=== PATIENT | female | born 1940 | race Hispanic/Latino ===

== ENCOUNTER 2020-02-21 08:50 | Inpatient (IN) | payer MEDICARE ==
[2020-02-21 11:00] LABS: Basophils % (Auto) 0.2 % (0.0-1.8); Eosinophils % (Auto) 0.8 % (0.0-4.3); Hematocrit 35.5 % (30.3-42.9); Hemoglobin 11.8 gm/dl (10.1-14.3); Lymphocytes # (Auto) 0.9 K/mm3 (1.2-5.4); Lymphocytes % (Auto) 14.8 % (13.4-35.0); Mean Corpuscular HGB Conc 33 % (30-34); Mean Corpuscular Volume 87 fl (79-97); Monocytes # (Auto) 0.5 K/mm3 (0.0-0.8); Monocytes % (Auto) 8.9 % (0.0-7.3); Platelet Count 230 K/mm3 (140-440); Red Blood Count 4.08 M/mm3 (3.65-5.03)
[2020-02-21] MEDS ORDERED: cefTRIAXone/NS 1 GM/50 ML 1 GM/50 ML BAG IV ONE (11:03)
[2020-02-21] MEDS ORDERED: dexAMETHasone 20 MG/5 ML VIAL IV ONE (11:03)
--- NOTE | 2020-02-21 11:03 | Emergency Department Report ---
HPI - General Chief Complaint: Dyspnea/Respdistress Time Seen by Provider: 02/21/20 10:04 - HPI HPI: This is a 79-year-old female presents to the emergency department with complaint of a 4 to 5-day history of shortness of breath, coughing, body aches, diarrhea, subjective fever. The patient went on Wednesday for drive-through COVID- 19 testing and found out last night that she was positive. She says that the shortness of breath worsened overnight. Patient came to triage and was 80% oxygen saturation on room air. She was placed on 4 L oxygen via nasal cannula and the oxygen increased to the mid to high 90s. She has a past medical history that includes hypertension and hyperlipidemia. She denies being a tobacco smoker or any illicit drugs. No recent travel or sick contacts at home. ED Past Medical Hx - Past Medical History Hx Hypertension: Yes Hx Arthritis: Yes Additional medical history: HIGH CHOLESTROL - Surgical History Hx Cholecystectomy: Yes Additional Surgical History: BILATERAL KNEE PREPLACEMENT/ HIP REPLACEMENT /HYSTO ED Review of Systems ROS: Stated complaint: TESTED POSITIVE FOR COVID Other details as noted in HPI Comment: All other systems reviewed and negative Constitutional: chills, fever Eyes: denies: eye pain, vision change ENT: denies: ear pain, throat pain Respiratory: cough, shortness of breath Cardiovascular: denies: chest pain, palpitations Gastrointestinal: nausea, diarrhea. denies: abdominal pain Genitourinary: denies: dysuria, discharge Musculoskeletal: myalgia. denies: joint swelling Skin: denies: rash, lesions Neurological: denies: weakness, numbness Physical Exam - Physical Exam Vital Signs: Vital Signs 02/21/20 09:23 Temperature 99.1 F Pulse Rate 77 Respiratory 24 Rate Blood Pressure 147/49 [Right] O2 Sat by Pulse 80 L Oximetry Physical Exam: GENERAL: The patient is well-developed well-nourished. HENT: Normocephalic. Atraumatic. Patient has moist mucous membranes. EYES: Extraocular motions are intact. Pupils equal reactive to light bilaterally. NECK: Supple. Trachea is midline. CHEST/LUNGS: A productive sounding cough heard during examination. There is fransisca e tachypnea. HEART/CARDIOVASCULAR: Regular. There is no tachycardia. There is no murmur. ABDOMEN: Abdomen is soft, nontender. Patient has normal bowel sounds. Obese habitus. SKIN: Skin is warm and dry. NEURO: The patient is awake, alert, and oriented. The patient is cooperative. The patient has no focal neurologic deficits. Normal speech. MUSCULOSKELETAL: There is no tenderness or deformity. There is no limitation range of motion. T ED Course Vital Signs 02/21/20 09:23 Temperature 99.1 F Pulse Rate 77 Respiratory 24 Rate Blood Pressure 147/49 [Right] O2 Sat by Pulse 80 L Oximetry - Reevaluation(s) Reevaluation #1: 02/21/20 18:15 Lab Results 02/21/20 02/21/20 02/21/20 Range/Units 10:43 10:43 10:43 WBC 6.0 (4.5-11.0) K/mm3 RBC 4.08 (3.65-5.03) M/mm3 Hgb 11.8 (10.1-14.3) gm/dl Hct 35.5 (30.3-42.9) % MCV 87 (79-97) fl MCH 29 (28-32) pg MCHC 33 (30-34) % RDW 14.0 (13.2-15.2) % Plt Count 230 (140-440) K/mm3 Lymph % (Auto) 14.8 (13.4-35.0) % [place] % (Auto) 8.9 H (0.0-7.3) % Eos % (Auto) 0.8 (0.0-4.3) % Baso % (Auto) 0.2 (0.0-1.8) % Lymph # (Auto) 0.9 L (1.2-5.4) K/mm3 [place] # (Auto) 0.5 (0.0-0.8) K/mm3 Eos # (Auto) 0.0 (0.0-0.4) K/mm3 Baso # (Auto) 0.0 (0.0-0.1) K/mm3 Seg Neutrophils % 75.3 H (40.0-70.0) % Seg Neutrophils # 4.5 (1.8-7.7) K/mm3 PT 13.7 (12.2-14.9) Sec. INR 1.04 (0.87-1.13) D-Dimer 670.51 H (0-234) ng/mlDDU Sodium 142 (137-145) mmol/L Potassium 3.4 L (3.6-5.0) mmol/L Chloride 99.7 (98-107) mmol/L Carbon Dioxide 34 H (22-30) mmol/L Anion Gap 12 mmol/L BUN 15 (7-17) mg/dL Creatinine 0.6 (0.6-1.2) mg/dL Estimated GFR > 60 ml/min BUN/Creatinine Ratio 25 % Glucose 108 H (65-100) mg/dL Calcium 8.2 L (8.4-10.2) mg/dL Ferritin (10.0-200.0) ng/mL Total Bilirubin 0.30 (0.1-1.2) mg/dL AST 29 (5-40) units/L ALT 24 (7-56) units/L Alkaline Phosphatase 84 (35-129) units/L Lactate Dehydrogenase 431 H (91-180) units/L Troponin T < 0.010 (0.00-0.029) ng/mL C-Reactive Protein 9.60 H (0.00-1.30) mg/dL NT-Pro-B Natriuret Pep (0-900) pg/mL Total Protein 6.7 (6.3-8.2) g/dL Albumin 3.3 L (3.9-5) g/dL Albumin/Globulin Ratio 1.0 % Procalcitonin (<0.15) ng/mL 02/21/20 02/21/20 02/21/20 Range/Units 10:43 10:43 10:43 WBC (4.5-11.0) K/mm3 RBC (3.65-5.03) M/mm3 Hgb (10.1-14.3) gm/dl Hct (30.3-42.9) % MCV (79-97) fl MCH (28-32) pg MCHC (30-34) % RDW (13.2-15.2) % Plt Count (140-440) K/mm3 Lymph % (Auto) (13.4-35.0) % [place] % (Auto) (0.0-7.3) % Eos % (Auto) (0.0-4.3) % Baso % (Auto) (0.0-1.8) % Lymph # (Auto) (1.2-5.4) K/mm3 [place] # (Auto) (0.0-0.8) K/mm3 Eos # (Auto) (0.0-0.4) K/mm3 Baso # (Auto) (0.0-0.1) K/mm3 Seg Neutrophils % (40.0-70.0) % Seg Neutrophils # (1.8-7.7) K/mm3 PT (12.2-14.9) Sec. INR (0.87-1.13) D-Dimer (0-234) ng/mlDDU Sodium (137-145) mmol/L Potassium (3.6-5.0) mmol/L Chloride (98-107) mmol/L Carbon Dioxide (22-30) mmol/L Anion Gap mmol/L BUN (7-17) mg/dL Creatinine (0.6-1.2) mg/dL Estimated GFR ml/min BUN/Creatinine Ratio % Glucose (65-100) mg/dL Calcium (8.4-10.2) mg/dL Ferritin 674.3 H (10.0-200.0) ng/mL Total Bilirubin (0.1-1.2) mg/dL AST (5-40) units/L ALT (7-56) units/L Alkaline Phosphatase (35-129) units/L Lactate Dehydrogenase (91-180) units/L Troponin T (0.00-0.029) ng/mL C-Reactive Protein (0.00-1.30) mg/dL NT-Pro-B Natriuret Pep 452.6 (0-900) pg/mL Total Protein (6.3-8.2) g/dL Albumin (3.9-5) g/dL Albumin/Globulin Ratio % Procalcitonin < 0.05 (<0.15) ng/mL ED Medical Decision Making - Lab Data Result diagrams: 02/21/20 10:43 02/21/20 10:43 - EKG Data -: EKG Interpreted by Me EKG shows normal: sinus rhythm, axis (Left axis deviation), intervals, QRS complexes (LVH), ST-T waves Rate: normal - EKG Data When compared to previous EKG there are: previous EKG unavailable Interpretation: LVH - Radiology Data Radiology results: image reviewed interpreted by me: Chest x-ray shows bilateral patchy infiltrates concerning for pneumonia. - Medical Decision Making This patient presents to the emergency department with complaint of increased shortness of breath, coughing, body aches, nausea, diarrhea and a recent posi tive Covid test. The patient was 80% room air oxygen saturation through triage and was placed on 4 L oxygen via nasal cannula with some improvement. Chest x- ray shows bilateral pneumonia. Patient's labs shows multiple elevated inflammatory markers consistent with COVID-19 infection, such as D-dimer, CRP, LDH and ferritin levels. The patient was given IV Decadron, Rocephin, azithromycin and Zofran. The patient will be admitted to the hospital for further evaluation and treatment was accepted for admission by the hospitalist service. Critical Care Time: Yes Critical care time in (mins) excluding proc time.: 35 Critical care attestation.: If time is entered above; I have spent that time in minutes in the direct care of this critically ill patient, excluding procedure time. Critical care time was spent on this patient in doing her initial evaluation, multiple reevaluations, ordering and interpretation of labs and imaging, IV antibiotics, IV steroids, IV antiemetics, discussion with the hospitalist service and multiple discussions with the patient. Critical Care Time: 35 minutes ED Disposition Clinical Impression: Hypoxia, COVID-19 Pneumonia Qualifiers: Pneumonia type: due to unspecified organism Laterality: bilateral Lung location: unspecified part of lung Qualified Code(s): J18.9 - Pneumonia, unspecified organism Disposition: OP ADMIT IP TO THIS HOSP Is pt being admited?: Yes Condition: Serious Time of Disposition: 11:40
[2020-02-21] MEDS ORDERED: ONDANSETRON 4 MG/2 ML INJ IV ONE (11:04)
[2020-02-21 11:11] LABS: INR 1.04 (0.87-1.13)
--- NOTE | 2020-02-21 11:17 | XRay Report ---
CHEST 1 VIEW 02/21/2020 10:12 AM INDICATION / CLINICAL INFORMATION: SOB. COMPARISON: None available. FINDINGS: SUPPORT DEVICES: None. HEART / MEDIASTINUM: There are mild atherosclerotic calcifications in the aortic arch. The heart size appears normal. LUNGS / PLEURA: There are bilateral patchy interstitial and airspace opacities in the mid lower lung zones. No pneumothorax. ADDITIONAL FINDINGS: No significant additional findings. IMPRESSION: 1. There are patchy interstitial and airspace opacities in the mid lower lung zones which could repre sent pulmonary edema. Possibility that this could represent an atypical infection is included in the differential diagnosis. Signer Name: Don Hernández MD Signed: 02/21/2020 11:16 AM Workstation Name: [id number]
[2020-02-21 11:28] LABS: Alanine Aminotransferase 24 units/L (7-56); Albumin 3.3 g/dL (3.9-5); Blood Urea Nitrogen 15 mg/dL (7-17); Calcium 8.2 mg/dL (8.4-10.2); Hemolysis Index 6
[2020-02-21 11:29] LABS: BUN/Creatinine Ratio 25
[2020-02-21] MEDS ORDERED: AZITHROMYCIN 500 MG in SODIUM CHLORIDE 0.9% 250ML 250 ML IV ONE (11:30)
[2020-02-21] MEDS ORDERED: ACETAMINOPHEN 325 MG TAB PO PRN (13:04)
[2020-02-21] MEDS ORDERED: ONDANSETRON 4 MG/2 ML INJ IV PRN (13:04)
[2020-02-21] MEDS ORDERED: oxyCODONE /ACETAMINOPHEN 5-325MG TAB PO PRN (13:06)
--- NOTE | 2020-02-21 13:12 | History and Physical Report ---
<CARMELINA RATLIFF - Last Filed: 02/21/20 16:54> History of Present Illness History of present illness: This is a 89-year-old female with hypertension, arthritis and hypercholesterolemia presented to the emergency department on 02/20 with 4 to 5- day history of shortness of breath, coughing, body aches, diarrhea, loss of sense of taste and smell and subjective fever. Patient states that she tested positive for COVID-19 on Wednesday and her shortness of breath worsened overnight therefore she presents to the hospital. Patient was hypoxic on presentation with his SPO2 of 80% on room air consistent with acute hypoxic respiratory failure patient was placed on supplemental oxygenation on 4 L via nasal cannula with improvement. Patient denies any chest pain, hemoptysis, recent weight loss, night sweats, fatigue, nausea, vomiting or recent weight loss. Patient states that she had recent contact with her sister who was sick but tested negative for COVID-19. Work-up in the emergency department included a chest x-ray that showed patchy interstitial and airspace opacities in the mid lower lung zones, hypoxic kalemia 3.4, elevated CO2 of 34, elevated COVID-19 markers with a procalcitonin of less than 0.05. Patient elevated D-dimer 650 or better therefore bilateral lower extremity Doppler ultrasounds were obtained to rule out a DVT. Infectious disease was consulted and patient will be admitted to the hospital service as a COVID-19 PUI. Advance care planning conducted in the emergency department. No prior visits to review. Past History Past Medical History: arthritis, hypertension, hyperlipidemia Past Surgical History: cholecystectomy, hysterectomy, total hip replacement, total knee replacement Social history: , lives with family, full code. denies: smoking, alcohol abuse, prescription drug abuse, IV drug use Medications and Allergies Allergies Allergy/AdvReac Type Severity Reaction Status Date / Time No Known Allergies Allergy Verified 02/21/20 09:19 Active Meds: Active Medications Acetaminophen (Tylenol) 650 mg PO Q4H PRN PRN Reason: Pain MILD(1-3)/Fever >100.5/CASTELLON Docusate Sodium (Colace) 100 mg PO BID [place] Ondansetron HCl (Zofran) 4 mg IV Q6H PRN PRN Reason: Nausea And Vomiting Oxycodone/Acetaminophen (Percocet 5/325) 1 tab PO Q6H PRN PRN Reason: Pain, Moderate (4-6) Senna (Senokot) 8.6 mg PO Q12HR [place] Sodium Chloride (Sodium Chloride Flush Syringe 10 Ml) 10 ml IV BID [place] Sodium Chloride (Sodium Chloride Flush Syringe 10 Ml) 10 ml IV PRN PRN PRN Reason: LINE FLUSH Review of Systems Constitutional: fever, chills, fatigue, malaise, lethargy, no weight loss, no weight gain, no sweats, no night sweats, no anorexia, no weakness Ears, nose, mouth and throat: no ear pain, no ear discharge, no tinnitis, no decreased hearing, no nose pain, no nasal congestion, no nasal discharge, no epistaxis, no bleeding gums, no dental pain, no mouth pain, no headache Cardiovascular: shortness of breath, dyspnea on exertion, high blood pressure, no chest pain, no orthopnea, no palpitations, no rapid/irregular heart beat, no edema, no syncope, no lightheadedness, no leg edema Respiratory: cough, cough with sputum, shortness of breath, pain on inspiration, no excessive sputum, no hemoptysis, no congestion Gastrointestinal: nausea, vomiting, diarrhea, no abdominal pain, no constipation, no change in bowel habits, no hematemesis, no melena, no hematochezia, no loss of appetite Genitourinary Female: dyspareunia, no dysuria, no urinary frequency, no urgency, no stress incontinence, no hematuria, no nocturia Rectal: no pain, no incontinence, no bleeding, no hemorrhoids Musculoskeletal: no neck stiffness, no neck pain, no shooting arm pain, no arm numbness/tingling, no low back pain, no shooting leg pain, no leg numbness/tingling, no redness of joints Integumentary: no rash, no pruritis, no redness, no sores, no wounds Neurological: changes in smell/taste, no head injury, no transient paralysis, no paralysis, no weakness, no parathesias, no numbness, no tingling, no seizures, no syncope, no headaches, no double vision, no loss of vision Psychiatric: no anxiety, no memory loss, no change in sleep habits, no sleep disturbances, no insomnia, no suicidal ideation, no depression Endocrine: no heat intolerance, no polydipsia, no polyuria, no nocturia, no weight change, no high blood sugars Hematologic/Lymphatic: no easy bruising, no easy bleeding Allergic/Immunologic: no urticaria, no allergic rhinitis Exam - Constitutional Vitals: Temp Pulse Resp BP Pulse Ox 99.1 F 77 24 147/49 80 L 02/21/20 09:23 02/21/20 09:23 02/21/20 09:23 02/21/20 09:23 02/21/20 09:23 General appearance: Present: no acute distress - EENT Eyes: Present: PERRL, EOM intact ENT: hearing intact, clear oral mucosa - Neck Neck: Present: supple - Respiratory Respiratory effort: normal Respiratory: bilateral: diminished - Cardiovascular Rhythm: regular Heart Sounds: Present: S1 & S2. Absent: systolic murmur, diastolic murmur - Extremities Extremities: no ischemia, pulses intact, pulses symmetrical, No edema, normal temperature, normal color, Full ROM Peripheral Pulses: within normal limits - Abdominal General gastrointestinal: Present: soft, non-tender, non-distended, normal bowel sounds - Integumentary Integumentary: Present: clear, warm, dry - Musculoskeletal Musculoskeletal: strength equal bilaterally - Psychiatric Psychiatric: appropriate mood/affect, cooperative - Neurologic Neurologic: CNII-XII intact, no focal deficits, moves all extremities - Allied Health Allied health notes reviewed: nursing HEART Score - HEART Score History: Slightly suspicious EKG: Normal Age: > 65 Risk factors: 1-2 risk factors Troponin: Troponin T < 0.010 ng/mL (0.00-0.029) 02/21/20 10:43 Troponin: < normal limit HEART Score: 3 Results - Labs CBC & Chem 7: 02/21/20 10:43 02/21/20 10:43 Labs: Laboratory Last Values WBC 6.0 K/mm3 (4.5-11.0) 02/21/20 10:43 RBC 4.08 M/mm3 (3.65-5.03) 02/21/20 10:43 Hgb 11.8 gm/dl (10.1-14.3) 02/21/20 10:43 Hct 35.5 % (30.3-42.9) 02/21/20 10:43 MCV 87 fl (79-97) 02/21/20 10:43 MCH 29 pg (28-32) 02/21/20 10:43 MCHC 33 % (30-34) 02/21/20 10:43 RDW 14.0 % (13.2-15.2) 02/21/20 10:43 Plt Count 230 K/mm3 (140-440) 02/21/20 10:43 Lymph % (Auto) 14.8 % (13.4-35.0) 02/21/20 10:43 [place] % (Auto) 8.9 % (0.0-7.3) H 02/21/20 10:43 Eos % (Auto) 0.8 % (0.0-4.3) 02/21/20 10:43 Baso % (Auto) 0.2 % (0.0-1.8) 02/21/20 10:43 Lymph # (Auto) 0.9 K/mm3 (1.2-5.4) L 02/21/20 10:43 [place] # (Auto) 0.5 K/mm3 (0.0-0.8) 02/21/20 10:43 Eos # (Auto) 0.0 K/mm3 (0.0-0.4) 02/21/20 10:43 Baso # (Auto) 0.0 K/mm3 (0.0-0.1) 02/21/20 10:43 Seg Neutrophils % 75.3 % (40.0-70.0) H 02/21/20 10:43 Seg Neutrophils # 4.5 K/mm3 (1.8-7.7) 02/21/20 10:43 PT 13.7 Sec. (12.2-14.9) 02/21/20 10:43 INR 1.04 (0.87-1.13) 02/21/20 10:43 D-Dimer 670.51 ng/mlDDU (0-234) H 02/21/20 10:43 Sodium 142 mmol/L (137-145) 02/21/20 10:43 Potassium 3.4 mmol/L (3.6-5.0) L 02/21/20 10:43 Chloride 99.7 mmol/L (98-107) 02/21/20 10:43 Carbon Dioxide 34 mmol/L (22-30) H 02/21/20 10:43 Anion Gap 12 mmol/L 02/21/20 10:43 BUN 15 mg/dL (7-17) 02/21/20 10:43 Creatinine 0.6 mg/dL (0.6-1.2) 02/21/20 10:43 Estimated GFR > 60 ml/min 02/21/20 10:43 BUN/Creatinine Ratio 25 % 02/21/20 10:43 Glucose 108 mg/dL (65-100) H 02/21/20 10:43 Calcium 8.2 mg/dL (8.4-10.2) L 02/21/20 10:43 Ferritin 674.3 ng/mL (10.0-200.0) H 02/21/20 10:43 Total Bilirubin 0.30 mg/dL (0.1-1.2) 02/21/20 10:43 AST 29 units/L (5-40) 02/21/20 10:43 ALT 24 units/L (7-56) 02/21/20 10:43 Alkaline Phosphatase 84 units/L (35-129) 02/21/20 10:43 Lactate Dehydrogenase 431 units/L (91-180) H 02/21/20 10:43 Troponin T < 0.010 ng/mL (0.00-0.029) 02/21/20 10:43 C-Reactive Protein 9.60 mg/dL (0.00-1.30) H 02/21/20 10:43 NT-Pro-B Natriuret Pep 452.6 pg/mL (0-900) 02/21/20 10:43 Total Protein 6.7 g/dL (6.3-8.2) 02/21/20 10:43 Albumin 3.3 g/dL (3.9-5) L 02/21/20 10:43 Albumin/Globulin Ratio 1.0 % 02/21/20 10:43 Procalcitonin < 0.05 ng/mL (<0.15) 02/21/20 10:43 - Diagnostic Impressions Diagnostic Impressions: 02/20 CXR shows patchy interstitial and airspace opacities in the mid to lower lung zones which could represent pulmonary edema or atypical infection Assessment and Plan - Patient Problems (1) Suspected 2019 novel coronavirus infection Current Visit: Yes Status: Acute Plan to address problem: Presented with a 4 to 5-day history of shortness of breath, coughing, body aches, diarrhea, loss of sense of taste and smell and subjective fevers Patient was COVID-19 PCR positive on Wednesday (02/18) at outside facility Infectious disease consulted 02/20 COVID-19 PCR pending S/p azithromycin and Rocephin in the emergency department Azithromycin and Rocephin were started however they were stopped given normal procalcitonin Trend Covid inflammatory markers Contact/droplet isolation OOB 3 times daily 02/20 dexamethasone p.o. 6 mg daily for 10 days 02/20 ID initiated remdesivir 02/20 Covid antibody pending Pulmonary hygiene Supplemental oxygenation as needed Anticoagulation per COVID-19 protocol (2) Acute respiratory failure Current Visit: Yes Status: Acute Plan to address problem: Patient was hypoxemic on presentation to the emergency department to SPO2 80% on room air Patient supplemental oxygenation Pulmonary hygiene Wean oxygen as tolerated Steroid therapy (3) Elevated d-dimer Current Visit: Yes Status: Acute Plan to address problem: Presented with D-dimer 670.01 02/20 bilateral lower extremity Doppler ultrasoundSVT Trend D-dimer (4) Hypokalemia Current Visit: Yes Status: Acute Plan to address problem: Presented with a potassium of 3.4 Repleted Trend BMP Replete as needed (5) HTN (hypertension) Current Visit: Yes Status: Chronic Plan to address problem: Resume home antihypertensive regimen when obtained Blood pressure monitor per protocol As needed hydralazine for systolic blood pressure greater than 160 (6) HLD (hyperlipidemia) Current Visit: Yes Status: Chronic Plan to address problem: Resume home statin therapy once obtained (7) Morbid obesity with BMI of 40.0-44.9, adult Current Visit: Yes Status: Chronic Plan to address problem: Patient has a BMI of 43.8 Increase physical activity and reduce caloric intake Possibly consider bariatric surgery outpatient (8) DVT prophylaxis Current Visit: Yes Status: Acute Plan to address problem: SCDs bilateral extremities while in bed Lovenox subcu (9) Full code status Current Visit: Yes Status: Acute <GLENN COWART - Last Filed: 02/21/20 18:06> History of Present Illness Date of admission: 02/21/20 11:40 Medications and Allergies Active Meds: Active Medications Acetaminophen (Tylenol) 650 mg PO Q4H PRN PRN Reason: Pain MILD(1-3)/Fever >100.5/[place] Dexamethasone (Decadron) 6 mg PO DAILY [facility] Stop: 03/02/20 10:01 Docusate Sodium (Colace) 100 mg PO BID [facility] Enoxaparin Sodium (Enoxaparin) 40 mg SUB-Q QDAY@2200 [place]; Protocol Hydralazine HCl (Apresoline) 10 mg IV Q4HR PRN PRN Reason: Hypertension REMDESIVIR 100 mg/ Sodium (Chloride) 250 mls @ 500 mls/hr IV Q24HR@2100 [place] Stop: 02/25/20 21:29 Ondansetron HCl (Zofran) 4 mg IV Q6H PRN PRN Reason: Nausea And Vomiting Oxycodone/Acetaminophen (Percocet 5/325) 1 tab PO Q6H PRN PRN Reason: Pain, Moderate (4-6) Potassium Chloride (K-Dur) 20 meq PO ONCE NR Stop: 02/21/20 19:00 Senna (Senokot) 8.6 mg PO Q12HR [facility] Sodium Chloride (Sodium Chloride Flush Syringe 10 Ml) 10 ml IV BID [facility] Last Admin: 02/21/20 15:18 Dose: 10 ml Documented by: Sodium Chloride (Sodium Chloride Flush Syringe 10 Ml) 10 ml IV PRN PRN PRN Reason: LINE FLUSH Sodium Chloride (Nacl 0.9%) 50 ml IV Q24H [facility] Stop: 02/25/20 21:01 Exam - Constitutional Vitals: Temp Pulse Resp BP Pulse Ox 99.1 F 77 24 147/49 80 L 02/21/20 09:23 02/21/20 09:23 02/21/20 09:23 02/21/20 09:23 02/21/20 09:23 HEART Score - HEART Score Troponin: Troponin T < 0.010 ng/mL (0.00-0.029) 02/21/20 10:43 Results - Labs CBC & Chem 7: 02/21/20 10:43 02/21/20 10:43 Labs: Laboratory Last Values WBC 6.0 K/mm3 (4.5-11.0) 02/21/20 10:43 RBC 4.08 M/mm3 (3.65-5.03) 02/21/20 10:43 Hgb 11.8 gm/dl (10.1-14.3) 02/21/20 10:43 Hct 35.5 % (30.3-42.9) 02/21/20 10:43 MCV 87 fl (79-97) 02/21/20 10:43 MCH 29 pg (28-32) 02/21/20 10:43 MCHC 33 % (30-34) 02/21/20 10:43 RDW 14.0 % (13.2-15.2) 02/21/20 10:43 Plt Count 230 K/mm3 (140-440) 02/21/20 10:43 Lymph % (Auto) 14.8 % (13.4-35.0) 02/21/20 10:43 [place] % (Auto) 8.9 % (0.0-7.3) H 02/21/20 10:43 Eos % (Auto) 0.8 % (0.0-4.3) 02/21/20 10:43 Baso % (Auto) 0.2 % (0.0-1.8) 02/21/20 10:43 Lymph # (Auto) 0.9 K/mm3 (1.2-5.4) L 02/21/20 10:43 [place] # (Auto) 0.5 K/mm3 (0.0-0.8) 02/21/20 10:43 Eos # (Auto) 0.0 K/mm3 (0.0-0.4) 02/21/20 10:43 Baso # (Auto) 0.0 K/mm3 (0.0-0.1) 02/21/20 10:43 Seg Neutrophils % 75.3 % (40.0-70.0) H 02/21/20 10:43 Seg Neutrophils # 4.5 K/mm3 (1.8-7.7) 02/21/20 10:43 PT 13.7 Sec. (12.2-14.9) 02/21/20 10:43 INR 1.04 (0.87-1.13) 02/21/20 10:43 D-Dimer 761.88 ng/mlDDU (0-234) H 02/21/20 16:53 Sodium 142 mmol/L (137-145) 02/21/20 10:43 Potassium 3.4 mmol/L (3.6-5.0) L 02/21/20 10:43 Chloride 99.7 mmol/L (98-107) 02/21/20 10:43 Carbon Dioxide 34 mmol/L (22-30) H 02/21/20 10:43 Anion Gap 12 mmol/L 02/21/20 10:43 BUN 15 mg/dL (7-17) 02/21/20 10:43 Creatinine 0.6 mg/dL (0.6-1.2) 02/21/20 10:43 Estimated GFR > 60 ml/min 02/21/20 10:43 BUN/Creatinine Ratio 25 % 02/21/20 10:43 Glucose 108 mg/dL (65-100) H 02/21/20 10:43 Calcium 8.2 mg/dL (8.4-10.2) L 02/21/20 10:43 Ferritin 674.3 ng/mL (10.0-200.0) H 02/21/20 10:43 Total Bilirubin 0.30 mg/dL (0.1-1.2) 02/21/20 10:43 AST 29 units/L (5-40) 02/21/20 10:43 ALT 24 units/L (7-56) 02/21/20 10:43 Alkaline Phosphatase 84 units/L (35-129) 02/21/20 10:43 Lactate Dehydrogenase 431 units/L (91-180) H 02/21/20 10:43 Troponin T < 0.010 ng/mL (0.00-0.029) 02/21/20 10:43 C-Reactive Protein 9.60 mg/dL (0.00-1.30) H 02/21/20 10:43 NT-Pro-B Natriuret Pep 452.6 pg/mL (0-900) 02/21/20 10:43 Total Protein 6.7 g/dL (6.3-8.2) 02/21/20 10:43 Albumin 3.3 g/dL (3.9-5) L 02/21/20 10:43 Albumin/Globulin Ratio 1.0 % 02/21/20 10:43 Procalcitonin < 0.05 ng/mL (<0.15) 02/21/20 10:43 Assessment and Plan Assessment and plan: I agree with history, examination and assessment and plan as written by Carmelina Ratliff NP. Continue dexamethasone and remdesivir ID evaluation appreciated Continue oxygen supplementation Prone positioning Zinc and Vitamin C Continue to monitor oxygen supplementation
--- NOTE | 2020-02-21 15:23 | Consultation ---
History of Present Illness - Reason for Consult Consult date: 02/21/20 COVID-19 Requesting physician: ANGELITA RATLIFF - History of Present Illness The patient is a 79-year-old female with hypertension, hyperlipidemia, bilateral knee replacements was admitted to the hospital with complaints of cough, shortness of breath, myalgia, diarrhea and subjective fevers for 4 to 5-day duration. She had undergone COVID-19 testing on Wednesday and just found out that she was positive. She developed worsening shortness of breath and hence came to the hospital. Noted to be hypoxic and was placed on supplemental oxygen. Infectious diseases was consulted for additional evaluation. Labs show normal CBC, D-dimer 670, ferritin 674, LDH 431, CRP 9.6, procalcitonin 0.05. Review of Systems: reviewed in the chart, unable to obtain directly due to PPE preservation and minimize risk of transmission Medications and Allergies Allergies Allergy/AdvReac Type Severity Reaction Status Date / Time No Known Allergies Allergy Verified 02/21/20 09:19 Active Meds: Active Medications Acetaminophen (Tylenol) 650 mg PO Q4H PRN PRN Reason: Pain MILD(1-3)/Fever >100.5/[facility] Azithromycin (Zithromax) 500 mg PO DAILY [facility] Stop: 02/25/20 10:01 Dexamethasone (Decadron) 6 mg PO DAILY [facility] Stop: 03/02/20 10:01 Docusate Sodium (Colace) 100 mg PO BID [facility] Ceftriaxone Sodium (Rocephin/Ns 1 Gm/50 Ml) 1 gm in 50 mls @ 100 mls/hr IV Q24HR [facility]; Protocol Stop: 02/26/20 09:59 Ondansetron HCl (Zofran) 4 mg IV Q6H PRN PRN Reason: Nausea And Vomiting Oxycodone/Acetaminophen (Percocet 5/325) 1 tab PO Q6H PRN PRN Reason: Pain, Moderate (4-6) Senna (Senokot) 8.6 mg PO Q12HR [facility] Sodium Chloride (Sodium Chloride Flush Syringe 10 Ml) 10 ml IV BID [facility] Last Admin: 02/21/20 15:18 Dose: 10 ml Documented by: Sodium Chloride (Sodium Chloride Flush Syringe 10 Ml) 10 ml IV PRN PRN PRN Reason: LINE FLUSH Physical Examination - Physical Exam Narrative exam: Physical Exam (reviewed in chart due to PPE conservation and minimize risk of transmission) Constitutional: limited due to PPE conservation strategy Head, Ears, Nose: limited due to PPE conservation strategy Eyes: limited due to PPE conservation strategy Neck: limited due to PPE conservation strategy Oral: limited due to PPE conservation strategy Cardiovascular: limited due to PPE conservation strategy Respiratory: limited due to PPE conservation strategy GI: limited due to PPE conservation strategy Musculoskeletal: limited due to PPE conservation strategy Skin: limited due to PPE conservation strategy Hem/Lymphatic: limited due to PPE conservation strategy Psych: limited due to PPE conservation strategy Neurological: limited due to PPE conservation strategy - Constitutional Vitals: Vital Signs Temp Pulse Resp BP Pulse Ox 99.1 F 77 24 147/49 80 L 02/21/20 09:23 02/21/20 09:23 02/21/20 09:23 02/21/20 09:23 02/21/20 09:23 Temperature -Last 24 Hours Temperature 99.1 F Results - Labs CBC & Chem 7: 02/21/20 10:43 02/21/20 10:43 Labs: Abnormal lab results 02/21/20 02/21/20 02/21/20 Range/Units 10:43 10:43 10:43 [place] % (Auto) 8.9 H (0.0-7.3) % Lymph # (Auto) 0.9 L (1.2-5.4) K/mm3 Seg Neutrophils % 75.3 H (40.0-70.0) % D-Dimer 670.51 H (0-234) ng/mlDDU Potassium 3.4 L (3.6-5.0) mmol/L Carbon Dioxide 34 H (22-30) mmol/L Glucose 108 H (65-100) mg/dL Calcium 8.2 L (8.4-10.2) mg/dL Ferritin (10.0-200.0) ng/mL Lactate Dehydrogenase 431 H (91-180) units/L C-Reactive Protein 9.60 H (0.00-1.30) mg/dL Albumin 3.3 L (3.9-5) g/dL 02/21/20 Range/Units 10:43 [place] % (Auto) (0.0-7.3) % Lymph # (Auto) (1.2-5.4) K/mm3 Seg Neutrophils % (40.0-70.0) % D-Dimer (0-234) ng/mlDDU Potassium (3.6-5.0) mmol/L Carbon Dioxide (22-30) mmol/L Glucose (65-100) mg/dL Calcium (8.4-10.2) mg/dL Ferritin 674.3 H (10.0-200.0) ng/mL Lactate Dehydrogenase (91-180) units/L C-Reactive Protein (0.00-1.30) mg/dL Albumin (3.9-5) g/dL - Imaging and Cardiology Chest x-ray: report reviewed, image reviewed (b/l pneumonia with typical COVID pattern) Assessment and Plan Cultures: SARS CoV2 PCR: Tested positive as outpatient A/P: 79-year-old female with hypertension, hyperlipidemia, bilateral knee replacements: #Bilateral pneumonia: Likely secondary to COVID-19. Patient reportedly tested positive as an outpatient. Markers are elevated, procalcitonin 0.05. #Acute hypoxic respiratory failure: On oxygen #Morbid obesity Recs: -IV/PO Dexamethasone 6 mg daily x 10 days -IV remdesivir ordered, day 1 -prophylactic anticoagulation based on d-dimer per hospital protocol -trend ferritin, LDH, d-dimer, CRP every 2-3 days for risk stratification and to assess disease progression -SARS-CoV-2 IgG ordered, if negative, patient may benefit from convalescent plasma -Procalcitonin is low, antibiotics not needed Lorraine Parra MD, FACP [facility] O: [phone] F: [phone]
--- NOTE | 2020-02-21 15:30 | Vascular Lab Report ---
DUPLEX DOPPLER LOWER EXTREMITY VEINS, BILATERAL INDICATION: r/o dvt. Bilateral leg pain and swelling TECHNIQUE: Duplex doppler imaging was performed through the veins of both lower extremities using venous chauncey javi and other maneuvers. COMPARISON: No relevant prior imaging study available. FINDINGS: Right Common femoral vein: Negative. Right Superficial femoral vein: Negative. Right Popliteal vein: Negative. Right Calf veins: Negative. Left Common femoral vein: Negative. Left Superficial femoral vein: Negative. Left Popliteal vein: Negative. Left Calf veins: Negative. Additional findings: None.. IMPRESSION: 1. No sonographic evidence for DVT in either lower extremity. Signer Name: Cliff Peace MD Signed: 02/21/2020 3:29 PM Workstation Name: [id number]
[2020-02-21] MEDS ORDERED: POTASSIUM CHLORIDE ER 20 MEQ TAB PO NR (16:38)
[2020-02-21] MEDS ORDERED: hydrALAZINE 20 MG/1 ML INJ IV PRN (16:49)
[2020-02-21] MEDS ORDERED: REMDESIVIR 200 MG in SODIUM CHLORIDE 0.9% 250ML 250 ML IV ONE (17:00)
[2020-02-21] MEDS ORDERED: SODIUM CHLORIDE 0.9% 50 ML IVPB IV ONE (17:00)
[2020-02-21] MEDS ORDERED: REMDESIVIR 100 MG VIAL IV ONE (17:00)
[2020-02-21] MEDS: SENNOSIDES 8.6 MG TAB PO SCH (20:59)
[2020-02-21] MEDS: ASCORBIC ACID 500 MG TAB PO SCH (20:59)
[2020-02-21] MEDS: ENOXAPARIN 40 MG/0.4 ML INJ SUB-Q SCH (20:59)
[2020-02-21] MEDS: DOCUSATE SODIUM 100 MG CAP PO SCH (21:03)
[2020-02-22 06:57] LABS: Hematocrit 34.3 % (30.3-42.9); Hemoglobin 11.6 gm/dl (10.1-14.3); Mean Corpuscular HGB Conc 34 % (30-34); Mean Corpuscular Volume 88 fl (79-97); Platelet Count 261 K/mm3 (140-440); Red Blood Count 3.91 M/mm3 (3.65-5.03); Red Cell Distribution Width 13.8 % (13.2-15.2)
[2020-02-22 07:07] LABS: Blood Urea Nitrogen 22 mg/dL (7-17); Hemolysis Index 6
[2020-02-22 07:12] LABS: Lymphocytes # (Auto) 0.7 K/mm3 (1.2-5.4); Lymphocytes % (Auto) 24.4 % (13.4-35.0); Monocytes # (Auto) 0.5 K/mm3 (0.0-0.8)
[2020-02-22 07:17] LABS: BUN/Creatinine Ratio 44
[2020-02-22] MEDS ORDERED: ENALAPRILAT 2.5 MG/2 ML INJ IV PRN (07:41)
[2020-02-22] MEDS ORDERED: POTASSIUM CHLORIDE ER 20 MEQ TAB PO NR (08:00)
[2020-02-22] MEDS: DOCUSATE SODIUM 100 MG CAP PO SCH ×2 (09:17→20:57)
[2020-02-22] MEDS: SENNOSIDES 8.6 MG TAB PO SCH ×2 (09:17→20:57)
[2020-02-22] MEDS ORDERED: cefTRIAXone/NS 1 GM/50 ML 1 GM/50 ML BAG IV SCH (10:00)
[2020-02-22] MEDS ORDERED: AZITHROMYCIN 250 MG TAB PO SCH (10:00)
[2020-02-22] MEDS: ZINC SULFATE 220 MG CAP PO SCH (10:11)
[2020-02-22] MEDS: amLODIPine 5 MG TAB PO SCH (10:11)
[2020-02-22] MEDS: ASCORBIC ACID 500 MG TAB PO SCH ×2 (10:11→20:57)
[2020-02-22] MEDS: DEXAMETHASONE 4 MG TAB PO SCH (10:11)
--- NOTE | 2020-02-22 13:59 | Progress Note ---
<EVYANGELITA NagaBernice - Last Filed: 02/22/20 14:13> Assessment and Plan - Patient Problems (1) Suspected 2019 novel coronavirus infection Current Visit: Yes Status: Acute Plan to address problem: Presented with a 4 to 5-day history of shortness of breath, coughing, body aches, diarrhea, loss of sense of taste and smell and subjective fevers Patient was COVID-19 PCR positive on Wednesday (02/18) at outside facility Infectious disease consulted 02/20 COVID-19 PCR pending S/p azithromycin and Rocephin in the emergency department Azithromycin and Rocephin were started however they were stopped given normal procalcitonin Trend Covid inflammatory markers Contact/droplet isolation OOB 3 times daily 02/20 dexamethasone p.o. 6 mg daily for 10 days 02/20 ID initiated remdesivir 02/20 Covid antibody pending Pulmonary hygiene Supplemental oxygenation as needed Anticoagulation per COVID-19 protocol (2) Acute respiratory failure Current Visit: Yes Status: Acute Plan to address problem: Patient was hypoxemic on presentation to the emergency department to SPO2 80% on room air Patient supplemental oxygenation Pulmonary hygiene Wean oxygen as tolerated Steroid therapy (3) Elevated d-dimer Current Visit: Yes Status: Acute Plan to address problem: Presented with D-dimer 670.01 02/20 bilateral lower extremity Doppler ultrasoundSVT Trend D-dimer (4) Hypokalemia Current Visit: Yes Status: Acute Plan to address problem: Presented with a potassium of 3.4, 02/21 K 3.4 Repleted Trend BMP Replete as needed (5) HTN (hypertension) Current Visit: Yes Status: Chronic Plan to address problem: Resume home antihypertensive regimen and titrate as needed Blood pressure monitoring per protocol As needed hydralazine for systolic blood pressure greater than 160 (6) HLD (hyperlipidemia) Current Visit: Yes Status: Chronic Plan to address problem: Resume home statin therapy (7) Morbid obesity with BMI of 40.0-44.9, adult Current Visit: Yes Status: Chronic Plan to address problem: Patient has a BMI of 43.8 Increase physical activity and reduce caloric intake Possibly consider bariatric surgery outpatient (8) Depression Current Visit: Yes Status: Chronic Plan to address problem: Resume home antidepressant Supportive care Follow-up outpatient with psych (9) Frequent falls Current Visit: Yes Status: Acute Plan to address problem: Patient reports frequent falls at home PT evaluation ordered (10) DVT prophylaxis Current Visit: Yes Status: Acute Plan to address problem: SCDs bilateral extremities while in bed Lovenox subcu History Interval history: This is a 79-year-old female with hypertension, depression, arthritis and hypercholesterolemia presented to the emergency department on 02/20 with 4 to 5- day history of shortness of breath, coughing, body aches, diarrhea, loss of sense of taste and smell and subjective fever. Patient states that she tested positive for COVID-19 on Wednesday and her shortness of breath worsened overnight therefore she presents to the hospital. Patient was hypoxic on presentation with his SPO2 of 80% on room air consistent with acute hypoxic respiratory failure patient was placed on supplemental oxygenation on 4 L via nasal cannula with improvement she was also given 10 mg of dexamethasone. Work-up in the emergency department included a chest x-ray that showed patchy interstitial and airspace opacities in the mid lower lung zones, hypokalemia 3.4, elevated CO2 of 34, elevated COVID-19 markers with a procalcitonin of less than 0.05. Infectious disease was consulted and patient will be admitted to the hospital service as a COVID-19 PUI. Today the patient is hypokalemic again at 3.4 and has been repleted. COVID-19 PCR is pending. She is on day 1 of remdesivir therapy and continues her steroids. She remains on supplemental oxygen and was hypertensive overnight therefore she was started on amlodipine 5 mg daily. Her home medications have been updated and reconciled. 02/20: Patient elevated D-dimer 650 or better therefore bilateral lower extremity Doppler ultrasounds were obtained to rule out a DVT. ID initiated patient on remdesivir and stopped antibiotics. Hospitalist Physical - Physical exam Narrative exam: No physical exam conducted in an effort to preserve PPE and minimize exposure - Constitutional Vitals: Temp Pulse Resp BP Pulse Ox 97.8 F 67 20 170/72 91 02/22/20 04:32 02/22/20 04:32 02/22/20 08:00 02/22/20 04:32 02/22/20 04:32 General appearance: Present: no acute distress HEART Score - HEART Score EKG: Normal Age: > 65 Risk factors: 1-2 risk factors Troponin: Troponin T < 0.010 ng/mL (0.00-0.029) 02/21/20 10:43 Troponin: < normal limit Results - Labs CBC & Chem 7: 02/22/20 05:46 02/22/20 05:46 Labs: Laboratory Last Values WBC 2.9 K/mm3 (4.5-11.0) L 02/22/20 05:46 RBC 3.91 M/mm3 (3.65-5.03) 02/22/20 05:46 Hgb 11.6 gm/dl (10.1-14.3) 02/22/20 05:46 Hct 34.3 % (30.3-42.9) 02/22/20 05:46 MCV 88 fl (79-97) 02/22/20 05:46 MCH 30 pg (28-32) 02/22/20 05:46 MCHC 34 % (30-34) 02/22/20 05:46 RDW 13.8 % (13.2-15.2) 02/22/20 05:46 Plt Count 261 K/mm3 (140-440) 02/22/20 05:46 Lymph % (Auto) 24.4 % (13.4-35.0) 02/22/20 05:46 [place] % (Auto) Intraoperative Neuro Tech 02/22/20 05:46 Eos % (Auto) 0.0 % (0.0-4.3) 02/22/20 05:46 Baso % (Auto) 0.0 % (0.0-1.8) 02/22/20 05:46 Lymph # (Auto) 0.7 K/mm3 (1.2-5.4) L 02/22/20 05:46 [place] # (Auto) 0.5 K/mm3 (0.0-0.8) 02/22/20 05:46 Eos # (Auto) 0.0 K/mm3 (0.0-0.4) 02/22/20 05:46 Baso # (Auto) 0.0 K/mm3 (0.0-0.1) 02/22/20 05:46 Seg Neutrophils % 57.3 % (40.0-70.0) 02/22/20 05:46 Seg Neutrophils # 1.7 K/mm3 (1.8-7.7) L 02/22/20 05:46 PT 13.7 Sec. (12.2-14.9) 02/21/20 10:43 INR 1.04 (0.87-1.13) 02/21/20 10:43 D-Dimer 761.88 ng/mlDDU (0-234) H 02/21/20 16:53 Sodium 142 mmol/L (137-145) 02/22/20 05:46 Potassium 3.4 mmol/L (3.6-5.0) L 02/22/20 05:46 Chloride 101.3 mmol/L (98-107) 02/22/20 05:46 Carbon Dioxide 33 mmol/L (22-30) H 02/22/20 05:46 Anion Gap 11 mmol/L 02/22/20 05:46 BUN 22 mg/dL (7-17) H 02/22/20 05:46 Creatinine 0.5 mg/dL (0.6-1.2) L 02/22/20 05:46 Estimated GFR > 60 ml/min 02/22/20 05:46 BUN/Creatinine Ratio 44 % 02/22/20 05:46 Glucose 135 mg/dL (65-100) H 02/22/20 05:46 Calcium 8.0 mg/dL (8.4-10.2) L 02/22/20 05:46 Ferritin 674.3 ng/mL (10.0-200.0) H 02/21/20 10:43 Total Bilirubin 0.30 mg/dL (0.1-1.2) 02/21/20 10:43 AST 29 units/L (5-40) 02/21/20 10:43 ALT 24 units/L (7-56) 02/21/20 10:43 Alkaline Phosphatase 84 units/L (35-129) 02/21/20 10:43 Lactate Dehydrogenase 431 units/L (91-180) H 02/21/20 10:43 Troponin T < 0.010 ng/mL (0.00-0.029) 02/21/20 10:43 C-Reactive Protein 9.60 mg/dL (0.00-1.30) H 02/21/20 10:43 NT-Pro-B Natriuret Pep 452.6 pg/mL (0-900) 02/21/20 10:43 Total Protein 6.7 g/dL (6.3-8.2) 02/21/20 10:43 Albumin 3.3 g/dL (3.9-5) L 02/21/20 10:43 Albumin/Globulin Ratio 1.0 % 02/21/20 10:43 Procalcitonin < 0.05 ng/mL (<0.15) 02/21/20 10:43 Lee/IV: Voiding Method Toilet Active Medications - Current Medications Current Medications: Generic Name Dose Route Start Last Admin Trade Name Freq PRN Reason Stop Dose Admin Acetaminophen 650 mg 02/21/20 13:04 02/22/20 13:27 Tylenol PO 650 mg Q4H PRN Administration Pain MILD(1-3)/Fever >100.5/[place] Amlodipine Besylate 5 mg 02/22/20 10:00 02/22/20 10:11 Amlodipine PO 5 mg QDAY [facility] Administration Ascorbic Acid 500 mg 02/21/20 22:00 02/22/20 10:11 Vitamin C PO 500 mg BID [facility] Administration Dexamethasone 6 mg 02/22/20 10:00 02/22/20 10:11 Decadron PO 03/02/20 10:01 6 mg DAILY [facility] Administration Docusate Sodium 100 mg 02/21/20 22:00 02/22/20 09:17 Colace PO Not Given BID [facility] Enalaprilat 0.625 mg 02/22/20 07:41 Vasotec IV Q6HR PRN Hypertension Enoxaparin Sodium 40 mg 02/21/20 22:00 02/21/20 20:59 Enoxaparin SUB-Q 40 mg QDAY@2200 [facility] Administration Protocol REMDESIVIR 100 mg/ Sodium 250 mls @ 500 mls/hr 02/22/20 21:00 Chloride IV 02/25/20 21:29 Q24HR@2100 [facility] Ondansetron HCl 4 mg 02/21/20 13:04 Zofran IV Q6H PRN Nausea And Vomiting Oxycodone/Acetaminophen 1 tab 02/21/20 13:06 Percocet 5/325 PO Q6H PRN Pain, Moderate (4-6) Senna 8.6 mg 02/21/20 22:00 02/22/20 09:17 Senokot PO Not Given Q12HR [facility] Sodium Chloride 10 ml 02/21/20 14:00 02/22/20 10:12 Sodium Chloride Flush Syringe 10 Ml IV 10 ml BID [facility] Administration Sodium Chloride 10 ml 02/21/20 13:04 Sodium Chloride Flush Syringe 10 Ml IV PRN PRN LINE FLUSH Sodium Chloride 50 ml 02/22/20 21:00 Nacl 0.9% IV 02/25/20 21:01 Q24H [facility] Zinc Sulfate 220 mg 02/22/20 10:00 02/22/20 10:11 Zinc Sulfate PO 220 mg QDAY [facility] Administration <GLENN COWART - Last Filed: 02/22/20 15:33> Assessment and Plan Assessment and plan: I agree with history, examination and assessment and plan as written by Angelita Phillips NP. COVID-19 test negative Continue current treatments ID recommendations appreciated. Hospitalist Physical - Constitutional Vitals: Temp Pulse Resp BP Pulse Ox 98.3 F 64 16 135/61 93 02/22/20 12:50 02/22/20 12:50 02/22/20 12:50 02/22/20 12:50 02/22/20 12:50 HEART Score - HEART Score Troponin: Troponin T < 0.010 ng/mL (0.00-0.029) 02/21/20 10:43 Results - Labs CBC & Chem 7: 02/22/20 05:46 02/22/20 05:46 Labs: Laboratory Last Values WBC 2.9 K/mm3 (4.5-11.0) L 02/22/20 05:46 RBC 3.91 M/mm3 (3.65-5.03) 02/22/20 05:46 Hgb 11.6 gm/dl (10.1-14.3) 02/22/20 05:46 Hct 34.3 % (30.3-42.9) 02/22/20 05:46 MCV 88 fl (79-97) 02/22/20 05:46 MCH 30 pg (28-32) 02/22/20 05:46 MCHC 34 % (30-34) 02/22/20 05:46 RDW 13.8 % (13.2-15.2) 02/22/20 05:46 Plt Count 261 K/mm3 (140-440) 02/22/20 05:46 Lymph % (Auto) 24.4 % (13.4-35.0) 02/22/20 05:46 [place] % (Auto) Intraoperative Neuro Tech 02/22/20 05:46 Eos % (Auto) 0.0 % (0.0-4.3) 02/22/20 05:46 Baso % (Auto) 0.0 % (0.0-1.8) 02/22/20 05:46 Lymph # (Auto) 0.7 K/mm3 (1.2-5.4) L 02/22/20 05:46 [place] # (Auto) 0.5 K/mm3 (0.0-0.8) 02/22/20 05:46 Eos # (Auto) 0.0 K/mm3 (0.0-0.4) 02/22/20 05:46 Baso # (Auto) 0.0 K/mm3 (0.0-0.1) 02/22/20 05:46 Seg Neutrophils % 57.3 % (40.0-70.0) 02/22/20 05:46 Seg Neutrophils # 1.7 K/mm3 (1.8-7.7) L 02/22/20 05:46 PT 13.7 Sec. (12.2-14.9) 02/21/20 10:43 INR 1.04 (0.87-1.13) 02/21/20 10:43 D-Dimer 761.88 ng/mlDDU (0-234) H 02/21/20 16:53 Sodium 142 mmol/L (137-145) 02/22/20 05:46 Potassium 3.4 mmol/L (3.6-5.0) L 02/22/20 05:46 Chloride 101.3 mmol/L (98-107) 02/22/20 05:46 Carbon Dioxide 33 mmol/L (22-30) H 02/22/20 05:46 Anion Gap 11 mmol/L 02/22/20 05:46 BUN 22 mg/dL (7-17) H 02/22/20 05:46 Creatinine 0.5 mg/dL (0.6-1.2) L 02/22/20 05:46 Estimated GFR > 60 ml/min 02/22/20 05:46 BUN/Creatinine Ratio 44 % 02/22/20 05:46 Glucose 135 mg/dL (65-100) H 02/22/20 05:46 Calcium 8.0 mg/dL (8.4-10.2) L 02/22/20 05:46 Ferritin 674.3 ng/mL (10.0-200.0) H 02/21/20 10:43 Total Bilirubin 0.30 mg/dL (0.1-1.2) 02/21/20 10:43 AST 29 units/L (5-40) 02/21/20 10:43 ALT 24 units/L (7-56) 02/21/20 10:43 Alkaline Phosphatase 84 units/L (35-129) 02/21/20 10:43 Lactate Dehydrogenase 431 units/L (91-180) H 02/21/20 10:43 Troponin T < 0.010 ng/mL (0.00-0.029) 02/21/20 10:43 C-Reactive Protein 9.60 mg/dL (0.00-1.30) H 02/21/20 10:43 NT-Pro-B Natriuret Pep 452.6 pg/mL (0-900) 02/21/20 10:43 Total Protein 6.7 g/dL (6.3-8.2) 02/21/20 10:43 Albumin 3.3 g/dL (3.9-5) L 02/21/20 10:43 Albumin/Globulin Ratio 1.0 % 02/21/20 10:43 Procalcitonin < 0.05 ng/mL (<0.15) 02/21/20 10:43 Coronavirus (PCR) Negative (Negative) 02/22/20 Unknown Lee/IV: Voiding Method Toilet Active Medications - Current Medications Current Medications: Generic Name Dose Route Start Last Admin Trade Name Freq PRN Reason Stop Dose Admin Acetaminophen 650 mg 02/21/20 13:04 02/22/20 13:27 Tylenol PO 650 mg Q4H PRN Administration Pain MILD(1-3)/Fever >100.5/[place] Amlodipine Besylate 5 mg 02/22/20 10:00 02/22/20 10:11 Amlodipine PO 5 mg QDAY [facility] Administration Ascorbic Acid 500 mg 02/21/20 22:00 02/22/20 10:11 Vitamin C PO 500 mg BID [facility] Administration Atorvastatin Calcium 20 mg 02/22/20 22:00 Lipitor PO QHS [facility] Azithromycin 500 mg 02/22/20 16:00 Zithromax PO 02/25/20 15:59 QDAY [facility] Dexamethasone 6 mg 02/22/20 10:00 02/22/20 10:11 Decadron PO 03/02/20 10:01 6 mg DAILY [facility] Administration Docusate Sodium 100 mg 02/21/20 22:00 02/22/20 09:17 Colace PO Not Given BID [facility] Enalaprilat 0.625 mg 02/22/20 07:41 Vasotec IV Q6HR PRN Hypertension Enoxaparin Sodium 40 mg 02/21/20 22:00 02/21/20 20:59 Enoxaparin SUB-Q 40 mg QDAY@2200 [facility] Administration Protocol REMDESIVIR 100 mg/ Sodium 250 mls @ 500 mls/hr 02/22/20 21:00 Chloride IV 02/25/20 21:29 Q24HR@2100 [facility] Ceftriaxone Sodium 2 gm in 100 mls @ 200 mls/hr 02/22/20 16:00 Rocephin/Ns 2 Gm/100 Ml IV 02/26/20 15:59 Q24HR [facility] Protocol Meloxicam 15 mg 02/22/20 15:00 Mobic PO QDAY [facility] Ondansetron HCl 4 mg 02/21/20 13:04 Zofran IV Q6H PRN Nausea And Vomiting Oxycodone/Acetaminophen 1 tab 02/21/20 13:06 Percocet 5/325 PO Q6H PRN Pain, Moderate (4-6) Senna 8.6 mg 02/21/20 22:00 02/22/20 09:17 Senokot PO Not Given Q12HR [facility] Sodium Chloride 10 ml 02/21/20 14:00 02/22/20 10:12 Sodium Chloride Flush Syringe 10 Ml IV 10 ml BID [facility] Administration Sodium Chloride 10 ml 02/21/20 13:04 Sodium Chloride Flush Syringe 10 Ml IV PRN PRN LINE FLUSH Sodium Chloride 50 ml 02/22/20 21:00 Nacl 0.9% IV 02/25/20 21:01 Q24H [facility] Venlafaxine HCl 150 mg 02/22/20 15:00 Effexor PO DAILY [facility] Zinc Sulfate 220 mg 02/22/20 10:00 02/22/20 10:11 Zinc Sulfate PO 220 mg QDAY [facility] Administration
[2020-02-22] MEDS ORDERED: NON-FORMULARY EACH (Venlafaxine Hcl [Venlafaxine Hcl Er] 150 MG) PO SCH (14:02)
[2020-02-22] MEDS ORDERED: NON-FORMULARY EACH (Meloxicam [Mobic] 15 MG) PO SCH (14:15)
--- NOTE | 2020-02-22 15:21 | Progress Note ---
Assessment and Plan Cultures: SARS CoV2 PCR: Tested positive as outpatient. However, negative here. A/P: 79-year-old female with hypertension, hyperlipidemia, bilateral knee replacements: #Bilateral pneumonia: Likely secondary to COVID-19. Patient reportedly tested positive as an outpatient but negative here. Markers are elevated, procalcitonin 0.05. #Acute hypoxic respiratory failure: On oxygen #Morbid obesity Recs: -tested positive as an outpatient but negative here. Markers are elevated. CXR with very typical findings. I would consider this very likely COVID and continue isolation. -continue IV/PO Dexamethasone 6 mg daily x 10 days -IV remdesivir, day 2 will stop at day 3 -prophylactic anticoagulation based on d-dimer per hospital protocol -trend ferritin, LDH, d-dimer, CRP every 2-3 days for risk stratification and to assess disease progression -f/u SARS-CoV-2 IgG -given negative COVID test, will restart abx especially atypical coverage Lorraine Parra MD, FACP [facility] O: [phone] F: [phone] Subjective Date of service: 02/22/20 Interval history: No fever. Remains on oxygen by [place]. Objective - Exam Narrative Exam: Physical Exam (reviewed in chart due to PPE conservation and minimize risk of transmission) Constitutional: limited due to PPE conservation strategy Head, Ears, Nose: limited due to PPE conservation strategy Eyes: limited due to PPE conservation strategy Neck: limited due to PPE conservation strategy Oral: limited due to PPE conservation strategy Cardiovascular: limited due to PPE conservation strategy Respiratory: limited due to PPE conservation strategy GI: limited due to PPE conservation strategy Musculoskeletal: limited due to PPE conservation strategy Skin: limited due to PPE conservation strategy Hem/Lymphatic: limited due to PPE conservation strategy Psych: limited due to PPE conservation strategy Neurological: limited due to PPE conservation strategy - Constitutional Vitals: Vital Signs Temp Pulse Resp BP Pulse Ox 98.3 F 64 16 135/61 93 02/22/20 12:50 02/22/20 12:50 02/22/20 12:50 02/22/20 12:50 02/22/20 12:50 Temperature -Last 24 Hours Temperature 98.3 F Temperature 98.1 F Temperature 97.8 F Temperature 98.7 F Temperature 98.6 F - Labs CBC & Chem 7: 02/22/20 05:46 02/22/20 05:46 Labs: Abnormal lab results 02/21/20 02/22/20 02/22/20 Range/Units 16:53 05:46 05:46 WBC 2.9 L (4.5-11.0) K/mm3 Lymph # (Auto) 0.7 L (1.2-5.4) K/mm3 Seg Neutrophils # 1.7 L (1.8-7.7) K/mm3 D-Dimer 761.88 H (0-234) ng/mlDDU Potassium 3.4 L (3.6-5.0) mmol/L Carbon Dioxide 33 H (22-30) mmol/L BUN 22 H (7-17) mg/dL Creatinine 0.5 L (0.6-1.2) mg/dL Glucose 135 H (65-100) mg/dL Calcium 8.0 L (8.4-10.2) mg/dL
[2020-02-22] MEDS: BENZONATATE 100 MG CAP PO SCH (17:02)
[2020-02-22] MEDS: MELOXICAM 7.5 MG TAB PO SCH (17:02)
[2020-02-22] MEDS: AZITHROMYCIN 250 MG TAB PO SCH (17:03)
[2020-02-22] MEDS: cefTRIAXone/NS 2 GM/100 ML 2 GM/100 ML BAG IV SCH (17:03)
[2020-02-22] MEDS: VENLAFAXINE 75 MG TAB PO SCH (17:15)
[2020-02-22] MEDS: ENOXAPARIN 40 MG/0.4 ML INJ SUB-Q SCH (20:56)
[2020-02-22] MEDS ORDERED: SODIUM CHLORIDE 0.9% 50 ML IVPB IV SCH (21:00)
[2020-02-22] MEDS ORDERED: REMDESIVIR 100 MG in SODIUM CHLORIDE 0.9% 250ML 250 ML IV SCH (21:00)
[2020-02-23] MEDS: DOCUSATE SODIUM 100 MG CAP PO SCH ×2 (00:13→09:30)
[2020-02-23] MEDS: ENOXAPARIN 40 MG/0.4 ML INJ SUB-Q SCH (00:14)
[2020-02-23] MEDS: SENNOSIDES 8.6 MG TAB PO SCH ×2 (00:15→09:31)
[2020-02-23] MEDS: ASCORBIC ACID 500 MG TAB PO SCH ×2 (00:16→09:31)
[2020-02-23] MEDS: BENZONATATE 100 MG CAP PO SCH ×3 (00:16→15:01)
[2020-02-23 07:14] LABS: C-Reactive Protein 3.4 mg/dL (0.00-1.30)
[2020-02-23] MEDS: cefTRIAXone/NS 2 GM/100 ML 2 GM/100 ML BAG IV SCH (09:28)
[2020-02-23] MEDS: MELOXICAM 7.5 MG TAB PO SCH (09:30)
[2020-02-23] MEDS: ZINC SULFATE 220 MG CAP PO SCH (09:31)
[2020-02-23] MEDS: amLODIPine 5 MG TAB PO SCH (09:31)
[2020-02-23] MEDS: AZITHROMYCIN 250 MG TAB PO SCH (09:31)
[2020-02-23] MEDS: DEXAMETHASONE 4 MG TAB PO SCH (09:31)
[2020-02-23 09:34] LABS: Alanine Aminotransferase 22 units/L (7-56); Albumin 3.2 g/dL (3.9-5); Blood Urea Nitrogen 27 mg/dL (7-17); Calcium 8.4 mg/dL (8.4-10.2); Hemolysis Index 7
[2020-02-23 09:40] LABS: BUN/Creatinine Ratio 45
[2020-02-23 09:54] LABS: Hematocrit 38.1 % (30.3-42.9); Hemoglobin 12.5 gm/dl (10.1-14.3); Lymphocytes # (Auto) 1.5 K/mm3 (1.2-5.4); Lymphocytes % (Auto) 18.6 % (13.4-35.0); Mean Corpuscular HGB Conc 33 % (30-34); Mean Corpuscular Volume 88 fl (79-97); Monocytes # (Auto) 0.8 K/mm3 (0.0-0.8); Monocytes % (Auto) 10.3 % (0.0-7.3); Platelet Count 355 K/mm3 (140-440); Red Blood Count 4.35 M/mm3 (3.65-5.03); Red Cell Distribution Width 13.7 % (13.2-15.2)
[2020-02-23] MEDS: VENLAFAXINE 75 MG TAB PO SCH (10:37)
--- NOTE | 2020-02-23 11:40 | Discharge Summary ---
Providers - Providers Date of Admission: 02/21/20 11:40 Attending physician: GLENN COWART 02/21/20 13:06 Consult to Physician [CONS] Routine Comment: Consulting Provider: CARINA TERAN Physician Instructions: Reason For Exam: COVID PUI 02/22/20 13:57 Physical Therapy Evaluation and Treat [CONS] Routine Comment: Reason For Exam: frequent falls Primary care physician: [facility] [employer] Hospitalization Condition: Stable Hospital course: This is a 79-year-old female with hypertension, depression, arthritis and hypercholesterolemia presented to the emergency department on 02/20 with 4 to 5- day history of shortness of breath, coughing, body aches, diarrhea, loss of sense of taste and smell and subjective fever. Patient states that she tested positive for COVID-19 on Wednesday and her shortness of breath worsened overnight therefore she presents to the hospital. Patient was hypoxic on presentation with his SPO2 of 80% on room air consistent with acute hypoxic respiratory failure patient was placed on supplemental oxygenation on 4 L via nasal cannula with improvement she was also given 10 mg of dexamethasone. Work-up in the emergency department included a chest x-ray that showed patchy interstitial and airspace opacities in the mid lower lung zones, hypokalemia 3.4, elevated CO2 of 34, elevated COVID-19 markers with a procalcitonin of less than 0.05. Infectious disease was consulted and patient will be admitted to the hospital service as a COVID-19 PUI. Given an elevated D-dimer on admission patient had bilateral lower extremity Doppler ultrasounds with showed no acute DVT/SVT and she was initiated on remdesivir therapy with antibiotics by ID. Her COVID-19 PCR resulted as negative however given COVID-19 pneumonia pattern on x-ray ID opted to continue remdesivir therapy for 3 days and initiate the patient on antibiotics. She will be discharged to complete her 10-day course of dexamethasone and on 3 days of antibiotic therapy of azithromycin and Ceftin. Patient's ambulatory SPO2 decreasing to the mid 80s therefore she will be discharged with home DME of oxygen. She will need to follow-up with her primary care physician within 1 to 2 weeks of discharge for evaluation of continuation of oxygen therapy and a regular visit. She will be discharged with 2.5 mg of Eliquis twice daily for 30 days for the deep venous thrombosis prophylaxis. - Patient Problems (1) Suspected 2019 novel coronavirus infection Current Visit: Yes Status: Acute Plan to address problem: Presented with a 4 to 5-day history of shortness of breath, coughing, body aches, diarrhea, loss of sense of taste and smell and subjective fevers Patient was COVID-19 PCR positive on Wednesday (02/18) at outside facility Infectious disease consulted 02/20 COVID-19 PCR negative S/p azithromycin and Rocephin in the emergency department Azithromycin and Rocephin were started given for COVID-19 presentation on CXR OOB 3 times daily 02/20 dexamethasone p.o. 6 mg daily for 10 days 02/20-02/22 s/p remdesivir 02/20 Covid antibody pending Pulmonary hygiene You will be discharged with supplemental oxygen (2) Acute respiratory failure Current Visit: Yes Status: Acute Plan to address problem: Patient was hypoxemic on presentation to the emergency department to SPO2 80% on room air Patient supplemental oxygenation Pulmonary hygiene Wean oxygen as tolerated Steroid therapy (3) Elevated d-dimer Current Visit: Yes Status: Acute Plan to address problem: Presented with D-dimer 670.01 02/20 bilateral lower extremity Doppler ultrasoundSVT (4) Hypokalemia Current Visit: Yes Status: Resolved Plan to address problem: Presented with a potassium of 3.4, 02/21 K 3.4, 02/22 K 4.1 (5) HTN (hypertension) Current Visit: Yes Status: Chronic Plan to address problem: Continue home antihypertensive regimen Blood pressure monitoring per primary care physician instructions (6) HLD (hyperlipidemia) Current Visit: Yes Status: Chronic Plan to address problem: Continue home statin therapy (7) Morbid obesity with BMI of 40.0-44.9, adult Current Visit: Yes Status: Chronic Plan to address problem: Patient has a BMI of 43.8 Increase physical activity and reduce caloric intake Possibly consider bariatric surgery outpatient (8) Depression Current Visit: Yes Status: Chronic Plan to address problem: Resume home antidepressant Supportive care Follow-up outpatient with psych (9) Frequent falls Current Visit: Yes Status: Acute Plan to address problem: Patient reports frequent falls at home PT evaluation ordered which had no acute recommendations at this time Patient has DME at home to assist with ambulation (9) DVT prophylaxis Current Visit: Yes Status: Acute Plan to address problem: You will be discharged with 2.5 mg of Eliquis twice daily for 30 days Disposition: DC-01 TO HOME OR SELFCARE Time spent for discharge: 35 Core Measure Documentation - Palliative Care Palliative Care/ Comfort Measures: Not Applicable - Core Measures Any of the following diagnoses?: none Exam - Constitutional Vitals: Temp Pulse Resp BP Pulse Ox 98 F 73 18 144/60 93 02/22/20 18:20 02/22/20 18:20 02/22/20 20:00 02/22/20 18:20 02/22/20 20:49 General appearance: Present: no acute distress - EENT Eyes: Present: PERRL, EOM intact ENT: hearing intact, clear oral mucosa - Neck Neck: Present: supple, normal ROM - Respiratory Respiratory effort: normal Respiratory: bilateral: diminished - Cardiovascular Rhythm: regular Heart Sounds: Present: S1 & S2. Absent: systolic murmur, diastolic murmur - Extremities Extremities: no ischemia, pulses intact, pulses symmetrical, No edema, normal temperature, normal color, Full ROM Peripheral Pulses: within normal limits - Abdominal General gastrointestinal: Present: soft, non-tender, non-distended, normal bowel sounds Female genitourinary: Present: normal - Integumentary Integumentary: Present: clear, warm, dry - Musculoskeletal Musculoskeletal: strength equal bilaterally - Psychiatric Psychiatric: appropriate mood/affect, cooperative - Neurologic Neurologic: CNII-XII intact, no focal deficits, moves all extremities - Allied Health Allied health notes reviewed: nursing, PT, social work, case management Plan Activity: advance as tolerated Diet: low fat, low cholesterol, low salt Special Instructions: record daily BP diary, home oxygen via Additional Instructions: Contact your primary care physician or present to nearest emergency department if experience worsening symptoms. You will be discharged with a 30-day supply of 2.5 mg of Eliquis twice daily, steroids to complete a 10-day course, antibiotic therapy for 3 days and supplemental oxygenation. You will need to follow-up with your primary care physician within 1 to 2 weeks of discharge reevaluation of continued oxygen need. Follow up with: PRIMARY CARE, [Primary Care Provider] - 3-5 Days Prescriptions: AtorvaSTATin [Lipitor] 20 mg PO QHS #30 tab Azithromycin 500 mg PO DAILY #3 tablet cefUROXime [Ceftin] 500 mg PO Q12HR 3 Days #6 tablet Dexamethasone 6 mg PO DAILY #7 tablet Apixaban [Eliquis] 2.5 mg PO BID #30 tablet Amlodipine Besylate [Norvasc] 5 mg PO DAILY #30 tab Benzonatate [Tessalon Perles] 100 mg PO Q8HR PRN #30 capsule PRN Reason: Cough Ascorbic Acid [Vitamin C] 500 mg PO BID #60 tablet Zinc Sulfate 220 mg PO QDAY #30 capsule
--- NOTE | 2020-02-23 12:52 | Progress Note ---
Assessment and Plan Cultures: SARS CoV2 PCR: Tested positive as outpatient. However, negative here. A/P: 79-year-old female with hypertension, hyperlipidemia, bilateral knee replacements: #Bilateral pneumonia: Likely secondary to COVID-19. Tested positive as an outpatient but negative here. Markers are elevated. CXR with very typical findings. I would consider this very likely COVID and continue isolation. #Acute hypoxic respiratory failure: On oxygen #Morbid obesity Recs: -complete Remdesivir x 3 days today -complete steroid course upon discharge -given negative COVID test, treat with abx as well: can switch to PO Ceftin 500 mg BID + PO Azithromycin 500 mg daily x 3 days D/W LESLY Rice MD, FACP [facility] O: [phone] F: [phone] Subjective Date of service: 02/23/20 Interval history: No fever. Remains on oxygen by [place]. Objective - Exam Narrative Exam: Physical Exam (reviewed in chart due to PPE conservation and minimize risk of transmission) Constitutional: limited due to PPE conservation strategy Head, Ears, Nose: limited due to PPE conservation strategy Eyes: limited due to PPE conservation strategy Neck: limited due to PPE conservation strategy Oral: limited due to PPE conservation strategy Cardiovascular: limited due to PPE conservation strategy Respiratory: limited due to PPE conservation strategy GI: limited due to PPE conservation strategy Musculoskeletal: limited due to PPE conservation strategy Skin: limited due to PPE conservation strategy Hem/Lymphatic: limited due to PPE conservation strategy Psych: limited due to PPE conservation strategy Neurological: limited due to PPE conservation strategy - Constitutional Vitals: Vital Signs Temp Pulse Resp BP Pulse Ox 98 F 73 18 144/60 93 02/22/20 18:20 02/22/20 18:20 02/22/20 20:00 02/22/20 18:20 02/22/20 20:49 Temperature -Last 24 Hours Temperature 98 F Temperature 98.3 F Temperature 98.1 F - Labs CBC & Chem 7: 02/23/20 08:48 02/23/20 08:48 Labs: Abnormal lab results 02/23/20 02/23/20 02/23/20 Range/Units 06:35 06:59 08:48 [place] % (Auto) 10.3 H (0.0-7.3) % Seg Neutrophils % 71.1 H (40.0-70.0) % BUN (7-17) mg/dL Glucose (65-100) mg/dL Ferritin 553.3 H (10.0-200.0) ng/mL Lactate Dehydrogenase 191 H (91-180) units/L C-Reactive Protein 3.40 H (0.00-1.30) mg/dL Albumin (3.9-5) g/dL 02/23/20 Range/Units 08:48 [place] % (Auto) (0.0-7.3) % Seg Neutrophils % (40.0-70.0) % BUN 27 H (7-17) mg/dL Glucose 113 H (65-100) mg/dL Ferritin (10.0-200.0) ng/mL Lactate Dehydrogenase (91-180) units/L C-Reactive Protein (0.00-1.30) mg/dL Albumin 3.2 L (3.9-5) g/dL
[2020-02-23] MEDS ORDERED: SODIUM CHLORIDE 0.9% 50 ML IVPB IV SCH (13:00)
[2020-02-23] MEDS ORDERED: REMDESIVIR 100 MG in SODIUM CHLORIDE 0.9% 250ML 250 ML IV SCH (13:00)
[2020-02-23 18:25] VITALS: BP 162/71
== END 2020-02-23 19:12 | disposition home or self-care (01) | DRG 177 ==
LOC: ED 08:50 → 3A 11:40
PROVIDERS: ADMIT Internal Medicine; ATTEND Internal Medicine
DX: U07.1 COVID-19 (principal); J96.01 Acute respiratory failure with hypoxia; J18.9 Pneumonia, unspecified organism; Z68.41 Body mass index [BMI] 40.0-44.9, adult; I10 Essential (primary) hypertension; Z96.653 Presence of artificial knee joint, bilateral; E66.01 Morbid (severe) obesity due to excess calories; F32.9 Major depressive disorder, single episode, unspecified; M19.90 Unspecified osteoarthritis, unspecified site; Z20.828 Contact with and (suspected) exposure to other viral communicable diseases; E87.6 Hypokalemia; E78.5 Hyperlipidemia, unspecified; Z90.49 Acquired absence of other specified parts of digestive tract; Z90.710 Acquired absence of both cervix and uterus
CPT/HCPCS: 36415; 71045; 80048; 80053; 82728; 83615; 83735; 83880; 84145; 84484; 85025; 85379; 85610; 86140; 93005; 93970; 94760; 96365; 96367; 96375; G0378; A9270-GY; J0456; J0696; J1100; J1650; J2405; J7050; J8540; U0003